=== PATIENT | female | born 2000 | race Asian ===

== ENCOUNTER 2020-07-21 22:17 | Emergency (ER) | payer OTHER ==
[~2020-07-21] VITALS: Ht 152.4 cm; Wt 81.0 kg
[2020-07-21] MEDS ORDERED: CEPHALEXIN MONOHYDRATE 500 MG CAPSULE PO ONE (22:45)
[2020-07-21 23:21] LABS: COVID AG,FIA SOURCE NASOPHARYNGEAL
[2020-07-22 00:54] LABS: RAPID GROUP A STREP NEGATIVE (NEGATIVE)
[2020-07-22 01:00] VITALS: BP 121/78
== END 2020-07-22 01:11 | disposition home or self-care (01) ==
LOC: EMS 22:21
DX: J02.9 Acute pharyngitis, unspecified (principal); H60.11 Cellulitis of right external ear; Z20.828 Contact with and (suspected) exposure to other viral communicable diseases
CPT/HCPCS: 87426; 87430; 99283; U0003